=== PATIENT | male | born 1955 | race Caucasian/White ===

== ENCOUNTER 2021-11-04 02:12 | Inpatient (IN) | payer OTHER ==
[~2021-11-04] VITALS: Ht 170.2 cm; Wt 93.0 kg
--- NOTE | 2021-11-04 02:24 | NUR ---
PATIENT [id number] FROM HOME C/O N/V. PER EMS PATIENT ALSO STATED ABD PAIN FOR THE PAST 4 DAYS. PATIENT IS A/O X 3, RR EVEN AND UNLABORED, NO SOB NOTED. PATIENT TAKEN TO ER BED 12. PATIENT CONNECTED TO CARDIAC AND POX MONITORS.
[2021-11-04] MEDS ORDERED: PANTOPRAZOLE 40 MG VIAL ONE (02:27)
[2021-11-04] MEDS ORDERED: ONDANSETRON HCL/PF 4 MG/2 ML VIAL ONE ×2 (02:27→03:38)
[2021-11-04] MEDS ORDERED: ONDANSETRON HCL/PF 4 MG/2 ML VIAL IVP ONE (02:30)
[2021-11-04] MEDS ORDERED: PANTOPRAZOLE 40 MG VIAL IV ONE (02:30)
[2021-11-04] MEDS ORDERED: IV NS 0.9% 1,000 ML BAG IV ONE (02:30)
[2021-11-04 03:06] LABS: BASOPHILS # (AUTO) 0.1 K/uL (0.0-0.2); BASOPHILS % (AUTO) 1.1 % (0.0-2.0); EOSINOPHILS % (AUTO) 4.6 % (0.0-6.0); HEMATOCRIT 27 % (39-51); HEMOGLOBIN 8.7 g/dL (13.5-17.5); LYMPHOCYTES # (AUTO) 1.2 K/uL (0.8-4.8); LYMPHOCYTES % (AUTO) 22.5 % (20.0-44.0); MEAN CORPUSCULAR HGB CONC 32 g/dl (31.0-36.0); MEAN CORPUSCULAR VOLUME 77 fL (80-96); MONOCYTES # (AUTO) 0.7 K/uL (0.1-1.30); MONOCYTES % (AUTO) 12.5 % (2.0-12.0); NEUTROPHILS # (AUTO) 3.3 K/uL (1.8-8.9); NEUTROPHILS % (AUTO) 59.3 % (43.0-81.0); PLATELET COUNT (AUTO) 152 K/uL (150-450); RED BLOOD CELL COUNT(AUTO) 3.57 MIL/uL (4.5-6.0); WHITE BLOOD COUNT (AUTO) 5.6 K/uL (4.3-11.0)
[2021-11-04 03:20] LABS: CALCIUM, SERUM 8.9 mg/dL (8.5-10.1); CARBON DIOXIDE 30 mmol/L (21-32); CHLORIDE 106 mmol/L (98-107); CREATININE 0.9 mg/dL (0.6-1.3); GLUCOSE 138 mg/dL (74-106); POTASSIUM 3.4 mmol/L (3.5-5.1); SODIUM SERUM 140 mmol/L (136-145); UREA NITROGEN, BLOOD 33 mg/dL (7-18)
[2021-11-04 03:26] LABS: ALANINE AMINOTRANSFERASE 26 U/L (12-78); ALBUMIN 3.1 g/dL (3.4-5.0); ALKALINE PHOSPHATASE 58 U/L (46-116); ASPARTATE AMINOTRANSFERASE 17 U/L (15-37); BILIRUBIN,DIRECT 0.1 mg/dL (0.0-0.2); BILIRUBIN,TOTAL 0.4 mg/dL (0.2-1.0); LIPASE 76 U/L (73-393); TOTAL PROTEIN, SERUM 6.7 g/dL (6.4-8.2)
[2021-11-04] MEDS ORDERED: MORPHINE SULFATE INJ 2 MG/ML DISP.SYRIN IV ONE (03:30)
[2021-11-04] MEDS ORDERED: MORPHINE SULFATE INJ 2 MG/ML DISP.SYRIN ONE (03:30)
--- NOTE | 2021-11-04 03:31 | NUR ---
PT HAD EMESIS OF BRIGHT RED EMESIS. MADE AWARE. ORDERS RECIEVED
--- NOTE | 2021-11-04 03:46 | NUR ---
JEANA SWABBED AND SENT TO LAB
[2021-11-04] MEDS ORDERED: ONDANSETRON HCL/PF 4 MG/2 ML VIAL IV ONE (04:00)
--- NOTE | 2021-11-04 04:51 | NUR ---
FOLLOWED UP WITH [facility]
--- NOTE | 2021-11-04 06:30 | NUR ---
PT IS AUTHORIZED TO STAY
[2021-11-04] MEDS ORDERED: POTASSIUM CHLORIDE 20 MEQ TAB.PRT.SR PO ONE ×2 (07:00→08:50)
--- NOTE | 2021-11-04 08:57 | NUR ---
ROOM 109
--- NOTE | 2021-11-04 09:01 | NUR ---
PT REPORT GIVEN TO JIM PARKINSON.
--- NOTE | 2021-11-04 09:50 | NUR ---
TRANSFERRED TO BED 109 IN STABLE CONDITION
[2021-11-04] MEDS ORDERED: OCTREOTIDE 1,250 MCG in IV NS 0.9% 247.5 ML IV PRN (10:00)
[2021-11-04] MEDS ORDERED: MAGNESIUM HYDROXIDE 30 ML UDC PO PRN (10:00)
[2021-11-04] MEDS ORDERED: MAG HYDROX/AL HYDROX/SIMETH 30 ML UDC PO PRN (10:00)
[2021-11-04] MEDS ORDERED: ZOLPIDEM TARTRATE 5 MG TABLET PO PRN (10:00)
[2021-11-04] MEDS ORDERED: Z GUARD REMEDY 4 OZ OINT TP PRN (10:00)
--- NOTE | 2021-11-04 10:00 | NUR ---
RN NOTE PATIENT WAS TRANSFERRED FROM [facility] ER DUE TO NAUSEA/VOMITING AND ABDOMINAL PAIN WITH HX OF ALCOHOL ABUSE , POSSIBLE GI BLEEDING . PATIENT IS ALERT , ORIENTED TIMES 3 , FORGETFUL.PATIENT IS ON ROOM AIR WITH O2 SAT 100% , BREATHING NON LABORED , NO SIGHS OF DISTRESS, SKIN IS INTACT NO OPEN WOUND , PATIENT HAS IV ACCESS OF THE NURIA , 20 G , CURRENTLY NPO .WILL CONTINUE TO MONITOR
[2021-11-04] MEDS: Thiamine 100 MG in IV D5W 50 ML IV SCH (10:19)
[2021-11-04] MEDS: Folic acid 1 MG in IV D5W 50 ML IV SCH (10:19)
[2021-11-04] MEDS: LORAZEPAM INJ 2 MG/ML VIAL IV PRN ×2 (10:27→22:55)
[2021-11-04] MEDS: ONDANSETRON HCL/PF 4 MG/2 ML VIAL IVP PRN (10:28)
[2021-11-04 10:38] LABS: HEMOGLOBIN 7.3 g/dL (13.5-17.5)
[2021-11-04] MEDS ORDERED: CEFTRIAXONE 2 G in IV D5W 100 ML IV SCH (11:00)
[2021-11-04 11:04] LABS: IRON, SERUM 14 ug/dl (50-175); TOTAL IRON BINDING CAPACITY 350 ug/dl (250-450)
[2021-11-04] MEDS: PANTOPRAZOLE 80 MG in IV NS 0.9% 500 ML IV PRN (11:12)
[2021-11-04 11:17] LABS: FERRITIN 6 ng/mL (8-388)
[2021-11-04 12:01] VITALS: BP 114/67
[2021-11-04 16:21] VITALS: BP 120/70
[2021-11-04] MEDS: ACETAMINOPHEN 325 MG TABLET PO PRN (17:29)
--- NOTE | 2021-11-04 18:44 | NUR ---
RN NOTE PATIENT IS SLEEPING , LAST PAIN MEDICATIONS WERE ADMINISTERED AT 1800 DUE TO ABDOMINAL PAIN , ON ROOM AIT BREATHING NON LABORED,ALL MEDICATION WERE ADMINISTERED, ALL NEEDS WERE MET . BED IS AT LOWEST POSITION , CALL LIGHT WITHIN REACH
--- NOTE | 2021-11-04 19:10 | NUR ---
RN NOTES RECEIVED REPORT FROM MORNING RN. PATIENT IN BED ASLEEP BUT. ON ROOM AIR SATING 95% NO SOB NO DISTRESS NOTED AT THIS TIME. WITH IV ACCESS AT R UA # 20 PATENT FLUSHES WELL. ON PROTONIX DRI @ 50CC/HR, OCTREOTIDE 10CC/HR. ALL SAFETY MEASURES IN PLACE AT ALL TIME. HOB ELEVATED. CALL LIGHT WITHIN REACH. WILL CLOSELY MONITOR THE PATIENT
[2021-11-04 20:00] VITALS: BP 107/59
[2021-11-05] VITALS: BP 101/63
[2021-11-05] MEDS: PANTOPRAZOLE 80 MG in IV NS 0.9% 500 ML IV PRN (00:09)
[2021-11-05 04:00] VITALS: BP 107/62
--- NOTE | 2021-11-05 06:45 | NUR ---
RN NOTES MIDLINE NURSE CAME IN TO INSERT MIDLINE AT L UA G18 TOLERATED WELL BY THE PATIENT
[2021-11-05] MEDS ORDERED: ANESTHESIA TRAY IN PYXIS 1 EA TRAY MC ONE (07:25)
[2021-11-05 07:28] LABS: BASOPHILS % (AUTO) 1.1 % (0.0-2.0); EOSINOPHILS % (AUTO) 5.6 % (0.0-6.0); HEMATOCRIT 24 % (39-51); HEMOGLOBIN 7.4 g/dL (13.5-17.5); LYMPHOCYTES # (AUTO) 0.6 K/uL (0.8-4.8); LYMPHOCYTES % (AUTO) 22.4 % (20.0-44.0); MEAN CORPUSCULAR HGB CONC 31 g/dl (31.0-36.0); MEAN CORPUSCULAR VOLUME 79 fL (80-96); MONOCYTES # (AUTO) 0.2 K/uL (0.1-1.30); MONOCYTES % (AUTO) 9.3 % (2.0-12.0); NEUTROPHILS # (AUTO) 1.6 K/uL (1.8-8.9); NEUTROPHILS % (AUTO) 61.6 % (43.0-81.0); PLATELET COUNT (AUTO) 96 K/uL (150-450); RED BLOOD CELL COUNT(AUTO) 3.02 MIL/uL (4.5-6.0); WHITE BLOOD COUNT (AUTO) 2.5 K/uL (4.3-11.0)
--- NOTE | 2021-11-05 07:37 | NUR ---
RN/NOTE PATIENT LEFT THE FLOOR FOR SURGERY 0730. PATIENT WAS STABLE NO SIGNS OF DISTRESS.
[2021-11-05] MEDS ORDERED: SEVOFLURANE 250 ML BOTTLE IH ONE (07:48)
[2021-11-05 08:22] LABS: ALBUMIN 2.8 g/dL (3.4-5.0); BILIRUBIN,DIRECT 0.2 mg/dL (0.0-0.2); BILIRUBIN,TOTAL 0.6 mg/dL (0.2-1.0); CALCIUM, SERUM 7.9 mg/dL (8.5-10.1); CREATININE 0.9 mg/dL (0.6-1.3); MAGNESIUM 2.2 mg/dL (1.8-2.4); PHOSPHORUS 2.7 mg/dL (2.5-4.9); POTASSIUM 4.2 mmol/L (3.5-5.1); TOTAL PROTEIN, SERUM 5.9 g/dL (6.4-8.2)
[2021-11-05] MEDS ORDERED: FENTANYL PF 100MCG/2ML AMPUL ONE (08:38)
--- NOTE | 2021-11-05 09:31 | NUR ---
RN/NOTE PATIENT RETURNED TO THE FLOOR, ALL VSS, PATIENT SATTING AT 96% ON ROOM AIR. ORDERS CARRIED OUT. WILL CONTINUE TO MONITOR.
[2021-11-05 09:55] LABS: EOSINOPHILS % (MANUAL) 8 % (0-4); LYMPHOCYTES % (MANUAL) 18 % (16-48); MONOCYTES % (MANUAL) 16 % (0-11.0); NEUTROPHILS % (MANUAL) 58 (42-76)
[2021-11-05] MEDS ORDERED: PANTOPRAZOLE 40 MG VIAL IV SCH ×3 (10:00→21:00)
[2021-11-05] MEDS: ONDANSETRON HCL/PF 4 MG/2 ML VIAL IVP PRN ×2 (10:44→14:33)
[2021-11-05] MEDS: LORAZEPAM INJ 2 MG/ML VIAL IV PRN ×3 (10:44→21:17)
[2021-11-05] MEDS: Folic acid 1 MG in IV D5W 50 ML IV SCH (10:44)
[2021-11-05] MEDS: MORPHINE SULFATE INJ 2 MG/ML DISP.SYRIN IV PRN ×2 (10:45→14:34)
[2021-11-05] MEDS: Thiamine 100 MG in IV D5W 50 ML IV SCH (10:46)
[2021-11-05] MEDS ORDERED: CEFTRIAXONE 1 G in IV D5W 50 ML IV SCH (11:00)
[2021-11-05 12:00] VITALS: BP 127/69
[2021-11-05] MEDS: ACETAMINOPHEN 325 MG TABLET PO PRN (12:46)
[2021-11-05] MEDS ORDERED: SOD FERRIC GLUC 125 MG in IV NS 0.9% 100 ML IV SCH (14:00)
[2021-11-05 16:00] VITALS: BP 151/77
--- NOTE | 2021-11-05 18:58 | NUR ---
RN/NOTE PATIENT IS STABLE NO SIGNS OF DISTRESS. ALL CARE AND QUESTIONS ENDORSED TO VEHICLE DISMANTLER RN.
--- NOTE | 2021-11-05 19:10 | NUR ---
RN NOTES RECEIVED REPORT FROM MORNING RN. PATIENT IN BED ASLEEP. ON ROOM AIR SATING 95% NO SOB NO DISTRESS NOTED AT THIS TIME. WITH IV ACCESS AT L UA MIDLINE #18 PATENT FLUSHES WELL. OCTREOTIDE 10CC/HR. PATIENT IS S/P EGD IN THE MORNING. ON CLEAR LIQUID DIET.ALL SAFETY MEASURES IN PLACE AT ALL TIME. HOB ELEVATED. CALL LIGHT WITHIN REACH. BED ON LOWEST POSITION AND LOCKED. WILL CLOSELY MONITOR THE PATIENT
[2021-11-05 20:00] VITALS: BP 140/72
[2021-11-05 20:18] LABS: HEMOGLOBIN 7.9 g/dL (13.5-17.5)
--- NOTE | 2021-11-05 21:45 | NUR ---
RN NOTES PATIENT IS AGITATED, YELLING PRN ATIVAN GIVEN ORDERED
[2021-11-06] VITALS: BP 119/64
--- NOTE | 2021-11-06 01:00 | NUR ---
RN NOTES PATIENT START TO SCREAM AND AGITATED TRYING TO GET OUT OF HIS ROOM, PATIENT PULLED OUT HIS MIDLINE.SECURITY CALLED. [employer] OFFICER AND DR STRINGER INFORMED. PATIENT SIGNED AMA EXPLAINED RISK AND BENEFITS TO THE PATIENT STILL WANTED TO GO. ALL BELONGINGS GIVEN. ESCORTED BY THE SECURITY OUT FROM THE UNIT.
[2021-11-06] MEDS ORDERED: THIAMINE HCL 100 MG TABLET PO SCH (09:00)
[2021-11-06] MEDS ORDERED: FOLIC ACID 1 MG TABLET PO SCH (09:00)
== END 2021-11-06 02:14 | disposition left against medical advice (07) | DRG 280 ==
LOC: ER 02:14 → TELE1 09:09
PROVIDERS: ADMIT Nurse Practitioner Acute Care; ATTEND Nurse Practitioner Acute Care
PROC: 06L38CZ Occlusion of Esophageal Vein with Extraluminal Device, Via Natural or Artificial Opening Endoscopic (ICD-10-PCS; principal; 2021-11-05)
DX: K70.30 Alcoholic cirrhosis of liver without ascites (principal); I85.11 Secondary esophageal varices with bleeding; E44.0 Moderate protein-calorie malnutrition; E88.09 Other disorders of plasma-protein metabolism, not elsewhere classified; F10.10 Alcohol abuse, uncomplicated; D50.9 Iron deficiency anemia, unspecified; E66.9 Obesity, unspecified; E86.0 Dehydration; E87.6 Hypokalemia; Z20.822 Contact with and (suspected) exposure to COVID-19; Y90.0 Blood alcohol level of less than 20 mg/100 ml; Z90.49 Acquired absence of other specified parts of digestive tract; R79.89 Other specified abnormal findings of blood chemistry; Z68.36 Body mass index [BMI] 36.0-36.9, adult; K57.30 Diverticulosis of large intestine without perforation or abscess without bleeding; K44.9 Diaphragmatic hernia without obstruction or gangrene; K29.70 Gastritis, unspecified, without bleeding; K21.9 Gastro-esophageal reflux disease without esophagitis
CPT/HCPCS: 36415; 71045-TC; 80048-TC; 80061-TC; 80076-TC; 82728-TC; 83540-TC; 83690-TC; 83735-TC; 84100-TC; 84484-TC; 85025-TC; 85027-TC; 85730-TC; 86850-TC; 87081-TC; C9113; C9803; G0378; G0480; J0330; J0696; J1100; J2060; J2270; J2354; J2405; J2704; J2916; J3010; J3411; J3490; J7030; J7040; J7050; J7060

== ENCOUNTER 2023-01-17 22:29 | Inpatient (IN) | payer MEDICARE, OTHER ==
[~2023-01-17] VITALS: Ht 172.7 cm; Wt 96.6 kg
[2023-01-17] MEDS ORDERED: MORPHINE SULFATE INJ 2 MG/ML DISP.SYRIN ONE (22:44)
[2023-01-17] MEDS ORDERED: ONDANSETRON HCL/PF 4 MG/2 ML VIAL ONE (22:44)
[2023-01-17] MEDS ORDERED: ONDANSETRON HCL/PF 4 MG/2 ML VIAL IVP ONE (23:00)
[2023-01-17] MEDS ORDERED: MORPHINE SULFATE INJ 2 MG/ML DISP.SYRIN IV ONE (23:00)
[2023-01-17] MEDS ORDERED: IV NS 0.9% 1,000 ML BAG IV ONE (23:00)
[2023-01-17 23:53] LABS: BASOPHILS # (AUTO) 0.1 K/uL (0.0-0.2); EOSINOPHILS # (AUTO) 0.2 K/uL (0.0-0.7); HEMATOCRIT 34 % (39-51); HEMOGLOBIN 10.2 g/dL (13.5-17.5); LYMPHOCYTES # (AUTO) 0.2 K/uL (0.8-4.8); LYMPHOCYTES % (AUTO) 4.1 % (20.0-44.0); MEAN CORPUSCULAR HEMOGLOBIN 21 PG (26.0-33.0); MEAN CORPUSCULAR HGB CONC 30 g/dl (31.0-36.0); MEAN CORPUSCULAR VOLUME 69 fL (80-96); MONOCYTES # (AUTO) 0.3 K/uL (0.1-1.30); MONOCYTES % (AUTO) 5.1 % (2.0-12.0); NEUTROPHILS # (AUTO) 4.9 K/uL (1.8-8.9); NEUTROPHILS % (AUTO) 86.8 % (43.0-81.0); PLATELET COUNT (AUTO) 123 K/uL (150-450); RED BLOOD CELL COUNT(AUTO) 4.85 MIL/uL (4.5-6.0); RED CELL DISTRIBUTION WIDTH 20.5 % (11.5-15.0); WHITE BLOOD COUNT (AUTO) 5.7 K/uL (4.3-11.0)
[2023-01-18 00:10] LABS: INR 1.08 (0.91-1.10); PARTIAL THROMBOPLASTIN TIME 23.1 SEC (24.3-34.3); PROTHROMBIN TIME 11.4 SECS (9.2-11.1)
[2023-01-18 00:29] LABS: ALANINE AMINOTRANSFERASE 45 U/L (12-78); ALBUMIN 3.5 g/dL (3.4-5.0); ALKALINE PHOSPHATASE 70 U/L (46-116); ASPARTATE AMINOTRANSFERASE 40 U/L (15-37); BILIRUBIN,DIRECT 0.3 mg/dL (0.0-0.2); BILIRUBIN,TOTAL 0.8 mg/dL (0.2-1.0); CALCIUM, SERUM 8.8 mg/dL (8.5-10.1); CARBON DIOXIDE 24 mmol/L (21-32); CHLORIDE 102 mmol/L (98-107); CREATININE 0.8 mg/dL (0.6-1.3); GLUCOSE 122 mg/dL (74-106); LIPASE 26 U/L (16-77); POTASSIUM 3.9 mmol/L (3.5-5.1); SODIUM SERUM 134 mmol/L (136-145); TOTAL PROTEIN, SERUM 7.4 g/dL (6.4-8.2); UREA NITROGEN, BLOOD 14 mg/dL (7-18)
[2023-01-18 01:07] LABS: APPEARANCE,URINE CLEAR (CLEAR); BILIRUBIN,URINE NEGATIVE (NEGATIVE); BLOOD, URINE NEGATIVE Ery/uL (NEGATIVE); COLOR,URINE YELLOW (YELLOW); KETONES,URINE NEGATIVE (NEGATIVE); LEUKOCYTE ESTERASE ,URINE NEGATIVE (NEGATIVE); NITRITE, URINE NEGATIVE (NEGATIVE); PH,URINE 6.5 (5.0-8.0); PROTEIN,URINE NEGATIVE (NEGATIVE); UGLUCOSE NEGATIVE (NEGATIVE); UROBILINOGEN,URINE 0.2 EU/dL (0.2)
[2023-01-18] MEDS ORDERED: MAG HYDROX/AL HYDROX/SIMETH 30 ML UDC PO PRN (01:30)
[2023-01-18] MEDS ORDERED: ACETAMINOPHEN 325 MG TABLET PO PRN (01:30)
[2023-01-18] MEDS ORDERED: MAGNESIUM HYDROXIDE 30 ML UDC PO PRN (01:30)
[2023-01-18] MEDS ORDERED: ONDANSETRON HCL/PF 4 MG/2 ML VIAL IVP PRN (01:30)
[2023-01-18 02:52] VITALS: BP 121/94; TEMP 98.9; O2SAT 98
[2023-01-18] MEDS: MORPHINE SULFATE INJ 2 MG/ML DISP.SYRIN IV PRN ×5 (03:05→22:29)
[2023-01-18] MEDS: DICYCLOMINE HCL 10 MG CAPSULE PO SCH ×4 (05:54→23:14)
[2023-01-18 06:23] LABS: BASOPHILS # (AUTO) 0.1 K/uL (0.0-0.2); BASOPHILS % (AUTO) 2.1 % (0.0-2.0); EOSINOPHILS # (AUTO) 0.1 K/uL (0.0-0.7); EOSINOPHILS % (AUTO) 1.3 % (0.0-6.0); HEMATOCRIT 33 % (39-51); HEMOGLOBIN 9.9 g/dL (13.5-17.5); LYMPHOCYTES # (AUTO) 0.2 K/uL (0.8-4.8); MEAN CORPUSCULAR HEMOGLOBIN 21 PG (26.0-33.0); MEAN CORPUSCULAR HGB CONC 30 g/dl (31.0-36.0); MEAN CORPUSCULAR VOLUME 71 fL (80-96); MONOCYTES # (AUTO) 0.2 K/uL (0.1-1.30); MONOCYTES % (AUTO) 3.8 % (2.0-12.0); NEUTROPHILS # (AUTO) 3.7 K/uL (1.8-8.9); NEUTROPHILS % (AUTO) 87.8 % (43.0-81.0); PLATELET COUNT (AUTO) 97 K/uL (150-450); RED BLOOD CELL COUNT(AUTO) 4.65 MIL/uL (4.5-6.0); RED CELL DISTRIBUTION WIDTH 20.5 % (11.5-15.0); WHITE BLOOD COUNT (AUTO) 4.2 K/uL (4.3-11.0)
[2023-01-18 07:08] LABS: ALBUMIN 3.1 g/dL (3.4-5.0); BILIRUBIN,DIRECT 0.2 mg/dL (0.0-0.2); BILIRUBIN,TOTAL 0.8 mg/dL (0.2-1.0); CREATININE 0.7 mg/dL (0.6-1.3); TOTAL PROTEIN, SERUM 6.9 g/dL (6.4-8.2)
[2023-01-18 07:24] LABS: CALCIUM, SERUM 8.1 mg/dL (8.5-10.1)
[2023-01-18 07:30] VITALS: BP 133/86; TEMP 99.3; O2SAT 95
[2023-01-18] MEDS: PANTOPRAZOLE 40 MG TABLET.DR PO SCH (07:51)
[2023-01-18 12:07] LABS: ANISOCYTOSIS 1+; BASOPHILS % (MANUAL) 0 % (0.0-2.0); EOSINOPHILS % (MANUAL) 1 % (0-4); HYPOCHROMASIA 1+; LYMPHOCYTES % (MANUAL) 7 % (16-48); MONOCYTES % (MANUAL) 3 % (0-11.0); NEUTROPHILS % (MANUAL) 89 (42-76); PLATELET ESTIMATE DECREASED
[2023-01-18 16:00] VITALS: BP 119/77; TEMP 97.9; O2SAT 97
[2023-01-18 20:00] VITALS: BP 103/54; TEMP 98.8; O2SAT 98
[2023-01-18] MEDS: TEMAZEPAM 7.5 MG CAPSULE PO PRN (23:14)
[2023-01-19] MEDS: MORPHINE SULFATE INJ 2 MG/ML DISP.SYRIN IV PRN ×2 (04:35→06:08)
[2023-01-19] MEDS ORDERED: TRAMADOL HCL 50 MG TABLET PO ONE (05:30)
[2023-01-19] MEDS: DICYCLOMINE HCL 10 MG CAPSULE PO SCH ×2 (05:42→17:32)
[2023-01-19] MEDS: PANTOPRAZOLE 40 MG TABLET.DR PO SCH (07:49)
[2023-01-19 08:34] VITALS: BP 138/66; TEMP 98.6; O2SAT 96
[2023-01-19 11:05] LABS: URINE SODIUM, RANDOM 146 mmol/l (40-220)
[2023-01-19] MEDS: AZITHROMYCIN 250 MG TABLET PO SCH (13:10)
[2023-01-19] MEDS: HYDROMORPHONE 1 MG/1 ML DISP.SYRIN IM PRN ×3 (13:11→21:14)
[2023-01-19 16:17] VITALS: BP 138/76; TEMP 98.3; O2SAT 100
[2023-01-19] MEDS ORDERED: DICYCLOMINE HCL INJ 20 MG/2 ML AMPUL IM SCH (18:00)
[2023-01-19 20:00] VITALS: BP 128/73; TEMP 98.4; O2SAT 100
[2023-01-19] MEDS: TEMAZEPAM 7.5 MG CAPSULE PO PRN (22:53)
[2023-01-20] MEDS: DICYCLOMINE HCL 10 MG CAPSULE PO SCH ×5 (00:01→23:41)
[2023-01-20] MEDS: HYDROMORPHONE 1 MG/1 ML DISP.SYRIN IM PRN ×5 (02:11→22:34)
[2023-01-20 08:00] VITALS: BP 116/71; TEMP 97.7; O2SAT 96
[2023-01-20] MEDS: PANTOPRAZOLE 40 MG TABLET.DR PO SCH (09:11)
[2023-01-20] MEDS: POLYETHYLENE GLYCOL 3350 17 GM POWD.PACK PO SCH (12:13)
[2023-01-20] MEDS: AZITHROMYCIN 250 MG TABLET PO SCH (12:14)
[2023-01-20] MEDS: SENNOSIDES/DOCUSATE SODIUM 1 TAB TABLET PO SCH (12:21)
[2023-01-20 16:00] VITALS: BP 120/60; TEMP 98.2; O2SAT 97
[2023-01-20] MEDS: DOCUSATE SODIUM 100 MG CAPSULE PO SCH (17:16)
[2023-01-20 20:00] VITALS: BP 150/81; TEMP 98; O2SAT 96
[2023-01-20] MEDS: TEMAZEPAM 7.5 MG CAPSULE PO PRN (23:41)
[2023-01-21] MEDS: DICYCLOMINE HCL 10 MG CAPSULE PO SCH ×2 (06:13→11:47)
[2023-01-21] MEDS: HYDROMORPHONE 1 MG/1 ML DISP.SYRIN IM PRN ×2 (06:18→14:01)
[2023-01-21 07:00] VITALS: BP 147/79; TEMP 98.1; O2SAT 95
[2023-01-21] MEDS: POLYETHYLENE GLYCOL 3350 17 GM POWD.PACK PO SCH (09:03)
[2023-01-21] MEDS: PANTOPRAZOLE 40 MG TABLET.DR PO SCH (09:03)
[2023-01-21] MEDS: DOCUSATE SODIUM 100 MG CAPSULE PO SCH (09:03)
[2023-01-21] MEDS: SENNOSIDES/DOCUSATE SODIUM 1 TAB TABLET PO SCH (09:05)
[2023-01-21] MEDS: AZITHROMYCIN 250 MG TABLET PO SCH (11:48)
== END 2023-01-21 14:20 | disposition left against medical advice (07) | DRG 372 ==
LOC: ER 22:35 → MED 01-18 01:19
PROVIDERS: ADMIT Nurse Practitioner Acute Care; ATTEND Nurse Practitioner Acute Care
DX: A04.9 Bacterial intestinal infection, unspecified (principal); E87.1 Hypo-osmolality and hyponatremia; K76.6 Portal hypertension; D50.9 Iron deficiency anemia, unspecified; E86.1 Hypovolemia; K44.9 Diaphragmatic hernia without obstruction or gangrene; Z90.49 Acquired absence of other specified parts of digestive tract; K29.70 Gastritis, unspecified, without bleeding; F17.210 Nicotine dependence, cigarettes, uncomplicated; K70.30 Alcoholic cirrhosis of liver without ascites; K57.90 Diverticulosis of intestine, part unspecified, without perforation or abscess without bleeding; F10.20 Alcohol dependence, uncomplicated; Z20.822 Contact with and (suspected) exposure to COVID-19; Z98.890 Other specified postprocedural states
CPT/HCPCS: 36415; 71045-TC; 80048-TC; 80076-TC; 82728-TC; 83540-TC; 83690-TC; 83935-TC; 84300-TC; 84484-TC; 85025-TC; 85730-TC; 87081-TC; G0378; J0500; J1170; J2270; J2405; J7030